=== PATIENT | female | born 1985 | race Caucasian/White ===

== ENCOUNTER 2016-09-22 09:49 | Observation (INO) | payer OTHER ==
[2016-09-22 11:01] LABS: % IMMATURE GRANULYOCYTES 1.8 % (0.0-1.1); ABSOLUTE IMMATURE GRANULOCYTES 0.19 10^3/uL (0.00-0.10); ADD DIFF? NO; ADD MORPH? NO; ADD SCAN? NO; ATYPICAL LYMPHOCYTE FLAG 10 (0-99); FRAGMENT RBC FLAG 0 (0-99); HEMATOCRIT 34.7 % (38.0-47.0); LEFT SHIFT FLG 10 (0-99); LIPEMIA HEMOLYSIS FLAG 90 (0-99); MEAN CELL HEMOGLOBIN 30.5 pg (27.9-34.1); MEAN CELL HEMOGLOBIN CONCENTR. 34.6 g/dL (32.4-36.7); MEAN CELL VOLUME 88.1 fL (81.5-99.8); MEAN PLATELET VOLUME 10.8 fL (8.7-11.7); PLATELET CLUMPS FLAG 0 (0-99); PLATELET COUNT 181 10^3/uL (150-400); RED BLOOD CELL COUNT 3.94 10^6/uL (4.18-5.33)
--- NOTE | 2016-09-22 14:58 | OBPROG ---
OBG Labor Progress Note Assessment/Plan: Assessment: IUP at 30wks with fall forward onto right arm, trying to avoid a snake no direct impact to abd KB neg, CBC with mild anemia Cat I tracing FFN done Plan: D/C home - call if cramps, bld or LOF or decreased FM. Cont hydrating well. RTC as set in 2 wks 09/22/16 14:55 Subjective: Doing fine. Denies cramping or bld. GFM. Anxious after fall. sore right forearm. Objective: 09/22/16 10:40 Bynum Current Contraction Pattern: Other (Specify) (freq mild irritability, no palpable ctxns) FHR (bpm): 130 FHR Pattern Variability: Moderate FHR Category: 1 Membranes: Intact - Procedures Non-surgical Procedures: Other (Specify) (spec exam with small amount d/c - cx closed. FFN done) - Physical Exam General Appearance: WD/WN Abdomen: soft, other (Fundus soft) Extremities: non-tender, pedal edema (none) Neuro/Psych: normal mood/affect Oxytocin Orders Assessment - Pre-Induction/Augmentation Assessment Gestational Age: 30 week(s) and 5 day(s) ICD10 Worksheet Patient Problems: Problems Problem Status Onset Third trimester Acute Fall (on)(from) sidewalk curb, initial encounter Acute
== END 2016-09-22 14:30 | disposition home or self-care (01) ==
LOC: FLD 09:49
PROVIDERS: ADMIT Obstetrics & Gynecology; ATTEND Obstetrics & Gynecology
DX: Z04.3 Encounter for examination and observation following other accident (principal); Z3A.30 30 weeks gestation of pregnancy
CPT/HCPCS: 59025; G0378

== ENCOUNTER 2016-12-01 03:11 | Inpatient (IN) | payer OTHER ==
[2016-12-01] MEDS ORDERED: OLIVE OIL 118 ML BTL MISC PRN (03:38)
[2016-12-01] MEDS ORDERED: TERBUTALINE SULFATE 1 MG/ML VIAL IV PRN (03:38)
[2016-12-01] MEDS ORDERED: OXYTOCIN/RINGERS LACTATE 1,000 ML IV PRN (03:38)
[2016-12-01] MEDS ORDERED: EPSOM SALT 454 GM TP PRN (03:38)
[2016-12-01] MEDS ORDERED: LR 1,000 ML IV PRN (03:38)
[2016-12-01 04:28] LABS: % IMMATURE GRANULYOCYTES 1.2 % (0.0-1.1); ABSOLUTE IMMATURE GRANULOCYTES 0.16 10^3/uL (0.00-0.10); ADD DIFF? NO; ADD MORPH? NO; ADD SCAN? NO; ATYPICAL LYMPHOCYTE FLAG 0 (0-99); FRAGMENT RBC FLAG 0 (0-99); HEMATOCRIT 38.5 % (38.0-47.0); HEMOGLOBIN 13.4 g/dL (12.6-16.3); LEFT SHIFT FLG 10 (0-99); LIPEMIA HEMOLYSIS FLAG 90 (0-99); MEAN CELL HEMOGLOBIN 30.3 pg (27.9-34.1); MEAN CELL HEMOGLOBIN CONCENTR. 34.8 g/dL (32.4-36.7); MEAN CELL VOLUME 87.1 fL (81.5-99.8); MEAN PLATELET VOLUME 11.6 fL (8.7-11.7); PLATELET CLUMPS FLAG 70 (0-99); PLATELET COUNT 177 10^3/uL (150-400); RED BLOOD CELL COUNT 4.42 10^6/uL (4.18-5.33); RED CELL DISTRIBUTION WIDTH 12.8 % (11.5-15.2)
--- NOTE | 2016-12-01 04:52 | GHP ---
[f rep st] PREOP HISTORY AND PHYSICAL DATE OF ADMISSION: 12/01/2016 HISTORY OF PRESENT ILLNESS: The patient is a 31-year-old, G1, P0, at 40+ weeks gestation, with an e stimated due date of 11/26/2016, established by sure last menstrual, consistent with an 8 week ultra sound. The patient had spontaneous rupture of membranes approximately 23:30 on November 30 and began spontaneous onset of contractions approximately an hour later. Contractions have been increasing an d are now 3-4 minutes apart with moderate intensity. The patient has continued to have pink tinged clear fluid. She has noticed good movement. The contraction pains are low and midline. Init ial cervical exam showed the cervix was 1 cm dilated, approximately 70% effaced, at -1 station. Yael eduardo presentation. The patient is wanting to attempt something for pain and will try the tub baths f or now. She is interested in an epidural when available. CARE: The patient has been with [facility] since 8 weeks gestation. The annie t's has been relatively uncomplicated. The patient has a history of heterozygous factor V deficiency and she has been on low-dose aspirin through the . The patient's baseline gerber tocrit was borderline anemic and the patient has been on iron since the beginning. The patient's 20 -week ultrasound was normal at the 58th percentile of growth. LABS: The patient's labs include maternal blood type O positive, with negative an tibody screen. RPR nonreactive. Rubella immune. Hepatitis B surface antigen negative, HIV negativ e. SMA, cystic fibrosis, fragile X, all negative. Thyroid testing was all normal. Gonorrhea and c hlamydia were negative. Pap smear normal. Urinalysis and culture showed greater than 100,000 count asymptomatic bacteria at the beginning and the patient received antibiotics in the 1st trimester. Verifi testing was negative and MSAFP was negative. One-hour Glucola was borderline elevated at 133 and the patient had a 3-hour GTT that was normal. The initial hematocrit was 35% and this dropped to 34%. There was mild improvement of 36% on iron. GBS culture was negative. The patient had a Td ap vaccination on October 06. 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 The sister is homozygous. The patient was diagnose d in 2014. She was advised to be on baby aspirin for the . The patient has no other medic al problems other than a sister with thyroid precancer. PAST SURGICAL HISTORY: Odontectomy. ALLERGIES: The patient has no known drug allergies. CURRENT MEDICATIONS: Only vitamins and low-dose aspirin with iron. SOCIAL HISTORY: The patient is , lives with her , Alejandro. The patient is a nonsmoker. No alcohol or drug use. PHYSICAL EXAM: GENERAL: Upon admission, the patient is a well-developed, well-nourished, white fem kyle, in moderate distress with contractions. VITAL SIGNS: The patient is afebrile and normal vital signs. See nursing documentation for full details. HEART: heart tone monitoring reveals cat egory 2 tracing with baseline in the 130s with moderate variability and accelerations. There are oc casional variable deceleration noted with possible early decelerations occasionally. PELVIC: Contr actions are noted every 3-4 minutes spontaneously. Initial cervical exam was noted above. There wa s no obvious leakage of fluid but no palpable bag. EXTREMITIES: Nontender with no edema. ASSESSMENT: Intrauterine at 40+ weeks gestation with spontaneous rupture of membranes and onset of contractions. GBS culture negative. Early latent labor. Factor V heterozygous deficienc y on low-dose aspirin. PLAN: We will have the patient do tub for now and then recheck her cervix and get an epidural when the patient has shown some cervical change. /[id number]/MODL
[2016-12-01] MEDS ORDERED: LIDOCAINE 1% 300 MG/30 ML SDV ONE (05:24)
[2016-12-01] MEDS ORDERED: TERBUTALINE SULFATE 1 MG/ML VIAL ONE (05:25)
[2016-12-01] MEDS ORDERED: OXYTOCIN 10 UNIT/ML VIAL ONE (05:25)
[2016-12-01] MEDS ORDERED: AMMONIA AROMATIC 1 EACH AMP IH ONE (05:25)
[2016-12-01] MEDS ORDERED: OLIVE OIL 118 ML BTL ONE (05:25)
[2016-12-01] MEDS ORDERED: MISOPROSTOL 200 MCG TAB ONE (05:26)
[2016-12-01] MEDS ORDERED: PHENYLEPHRINE HCL 100 MCG/ML SYR ONE (07:07)
[2016-12-01] MEDS ORDERED: fentaNYL 2MCG/ML/BUP 0.1% RTU 100 ML BAG EP ONE (07:07)
[2016-12-01] MEDS ORDERED: BUPIVACAINE 0.25% 30 ML SDV ONE (07:07)
--- NOTE | 2016-12-01 07:54 | PREANESOB ---
Obstetric Pre-Anesthesia Info - General Info Proposed Procedure: Labor epidural for laboring patient : 1 Para: 0 WBD: 40 - Info Status: Full Term Monitors: External FHR Baseline (bpm): 135 FHR Pattern: Reassuring - Labor Status Cervical Dilation per last OB SVE: 2 Magnesium Sulfate in Use: No Indications for Labor Analgesia: Pain Control Labor Epidural: Proposed Anesthesia Allergies/Adverse Reactions: Allergy/AdvReac Type Severity Reaction Status Date / Time grass pollen Allergy Verified 09/22/16 10:13 Home Medications: Medication Instructions Recorded EPINEPHrine [Epipen] 0.3 mg IM ONCE #2 syr 11/19/14 predniSONE 40 mg PO DAILY #10 tab 11/19/14 Visit Medications: Generic Name Dose Route Start Last Admin Trade Name Freq PRN Reason Stop Dose Admin Lactated Ringer's 1,000 mls @ 0 mls/hr 12/01/16 03:38 Lr IV 05/30/17 03:37 PRN PRN SEE PROTOCOL CONDITIONS Protocol Per Protocol Oxytocin/Lactated Ringer's 1,000 mls @ 150 mls/hr 12/01/16 03:38 Pitocin 20 Units/Lr (Premix) IV PRN PRN Post- bleeding Ibuprofen 600 mg 12/01/16 03:38 Motrin PO 05/30/17 03:37 Q6HRS PRN post , inflammation Magnesium Sulfate 454 gm 12/01/16 03:38 Epsom Salt TP 05/30/17 03:37 Q1H PRN perineal discomfort Fowler Oil 118 ml 12/01/16 03:38 Sweet Oil MISC 05/30/17 03:37 ONCE PRN preneal massage Terbutaline Sulfate 0.25 mg 12/01/16 03:38 Brethine IV 05/30/17 03:37 ONCE PRN Tachysystole Discontinued Medications Generic Name Dose Route Start Last Admin Trade Name Freq PRN Reason Stop Dose Admin Ammonia (Aromatic Spirit) Confirm 12/01/16 05:25 Ammonia Aromatic Administered 12/01/16 05:26 Dose 1 each IH .STK-MED ONE Bupivacaine HCl Confirm 12/01/16 07:07 Sensorcaine 0.25% Sdv Administered 12/01/16 07:08 Dose 30 ml .ROUTE .STK-MED ONE Fentanyl/Bupivacaine HCl Confirm 12/01/16 07:07 Fentanyl/Bupivacaine/Ns 2 Mcg/Ml 0.1% (Premix Administered 12/01/16 07:08 Dose 100 ml EP .STK-MED ONE Lidocaine HCl Confirm 12/01/16 05:24 Lidocaine Hcl 1% Administered 12/01/16 05:25 Dose 300 mg .ROUTE .STK-MED ONE Misoprostol Confirm 12/01/16 05:26 Cytotec Administered 12/01/16 05:27 Dose 1,000 mcg .ROUTE .STK-MED ONE Fowler Oil Confirm 12/01/16 05:25 Sweet Oil Administered 12/01/16 05:26 Dose 118 ml .ROUTE .STK-MED ONE Oxytocin Confirm 12/01/16 05:25 Pitocin Administered 12/01/16 05:26 Dose 40 unit .ROUTE .STK-MED ONE Phenylephrine HCl Confirm 12/01/16 07:07 Neosynephrine Administered 12/01/16 07:08 Dose 1,000 mcg .ROUTE .STK-MED ONE Terbutaline Sulfate Confirm 12/01/16 05:25 Brethine Administered 12/01/16 05:26 Dose 1 mg .ROUTE .STK-MED ONE - Anesthesia History Response to Local Anesthetics: Normal Anesthesia & Operative History: No Prior Problems Family Anesthesia History: Not Applicable - Social History Substance Use/Abuse: Denies - Focused Exam Blood Pressure: 133/78 Heart Rate: 74 Respiratory Rate: 18 Height/Weight (Nursing): Height 162.56 cm Weight 78.471 kg Weight: 78 kg Height: 162.5 cm Physical Exam: WNL ASA Status: II Labs: 12/01/16 04:10 Patient ABO/Rh O POSITIVE 12/01/16 04:10 - Plan Consent Signed and on Chart: Yes Patient/Guardian Understands and Agrees to Plan: Yes Urgent/Emergent Case: Shelbyector schultzmicheal completed preop but documented later for safe timely pt care
[2016-12-01] MEDS ORDERED: ONDANSETRON 4 MG/2 ML VIAL IVP PRN (07:56)
[2016-12-01] MEDS ORDERED: PHENYLEPHRINE HCL 100 MCG/ML SYR IVP PRN (07:56)
--- NOTE | 2016-12-01 07:56 | POSTANESTH ---
Post Anesthetic Evaluation Cardiovascular Status: Normal, Stable Respiratory Status: Normal, Stable Level of Consciousness/Mental Status: Can Participate in Eval Pain Control: Adequate, Prn Tx Ordered Nausea/Vomiting Control: Adequate, Prn Tx Ordered Complications Possibly Related to Anesthesia: None Noted
[2016-12-01] MEDS ORDERED: LR 500 ML IV SCH (08:00)
[2016-12-01] MEDS ORDERED: fentaNYL 2MCG/ML/BUP 0.1% RTU 100 ML EP SCH (08:00)
--- NOTE | 2016-12-01 08:41 | OBPROG ---
OBG Labor Progress Note Assessment/Plan: Assessment: 31 y/o @ 40 5/7 wks with SROM in labor Plan: Continue expectant management s/p epidural FHTs - Cat I tracing with intermittent early decels Progressing well Anticipate 12/01/16 08:38 Subjective: Pt is comfortable, s/p epidural Objective: 12/01/16 04:10 Patient ABO/Rh O POSITIVE 12/01/16 04:10 Temp Pulse Resp BP Pulse Ox 74 18 133/78 H 12/01/16 07:55 12/01/16 07:55 12/01/16 07:55 - SVE Dilation (cm): 4 Effacement (%): 75 Station: -1 Bynum FHR (bpm): 130 FHR Pattern Variability: Moderate FHR Category: 1 (After the epidural, there was noted to be intermittent late decels x 2, recovered after resuscitation) Membranes: SROM Amniotic Fluid Color: Clear Oxytocin Orders Assessment - Pre-Induction/Augmentation Assessment Gestational Age: 40 week(s) and 5 day(s) ICD10 Worksheet Patient Problems: Problems Problem Status Onset SROM (spontaneous rupture of membranes) Acute Fall (on)(from) sidewalk curb, initial encounter Acute Third trimester Acute - ICD10 Problem Qualifiers (1) SROM (spontaneous rupture of membranes)
[2016-12-01] MEDS ORDERED: LR 500 ML IV PRN (08:44)
[2016-12-01] MEDS ORDERED: OXYTOCIN/RINGERS LACTATE 500 ML IV SCH (09:00)
--- NOTE | 2016-12-01 13:20 | OBPROG ---
OBG Labor Progress Note Assessment/Plan: Assessment: 31 y/o @ 40 5/7 wks with SROM in labor Plan: Pitocin at 4 mu/min, cont per protocol FHTs - Cat I tracing Anticipate 12/01/16 13:15 Subjective: Feeling comfortable with epidural, some pressure down below. Objective: 12/01/16 04:10 Patient ABO/Rh O POSITIVE 12/01/16 04:10 Temp Pulse Resp BP Pulse Ox 74 18 133/78 H 12/01/16 07:55 12/01/16 07:55 12/01/16 07:55 - SVE Dilation (cm): 7 (7-8) Effacement (%): 90 Station: +1 Bynum Current Contraction Pattern: Regular (q 3-4 min) FHR (bpm): 120 FHR Pattern Variability: Moderate FHR Category: 1 Membranes: SROM Amniotic Fluid Color: Clear Oxytocin Orders Assessment - Pre-Induction/Augmentation Assessment Gestational Age: 40 week(s) and 5 day(s) ICD10 Worksheet Patient Problems: Problems Problem Status Onset SROM (spontaneous rupture of membranes) Acute - ICD10 Problem Qualifiers (1) SROM (spontaneous rupture of membranes)
[2016-12-01] MEDS ORDERED: ACETAMINOPHEN 160 MG/5 ML UDCUP PO ONE (16:24)
[2016-12-01] MEDS ORDERED: ACETAMINOPHEN 325 MG TAB PO ONE (16:45)
--- NOTE | 2016-12-01 17:18 | OBPROG ---
OBG Labor Progress Note Assessment/Plan: Assessment: 31 y/o @ 40 5/7 wks with SROM in labor Plan: Pitocin at 3 mu/min, cont per protocol FHTs - Cat I tracing, was tachycardic Maternal fever Tmax 38.4, will tx for chorio with Amp and Gent Tylenol as needed Will have pt labor down 12/01/16 17:19 Subjective: She is comfortable with epidural Objective: 12/01/16 04:10 Patient ABO/Rh O POSITIVE 12/01/16 04:10 Temp Pulse Resp BP Pulse Ox 74 18 133/78 H 12/01/16 07:55 12/01/16 07:55 12/01/16 07:55 - SVE Dilation (cm): 9 (Ant lip) Effacement (%): 100 Station: +1 Bynum Current Contraction Pattern: Regular FHR (bpm): 130 FHR Pattern Variability: Moderate FHR Category: 1 Membranes: SROM Amniotic Fluid Color: Clear Oxytocin Orders Assessment - Pre-Induction/Augmentation Assessment Gestational Age: 40 week(s) and 5 day(s) ICD10 Worksheet Patient Problems: Problems Problem Status Onset Chorioamnionitis, delivered, current hospitalization Acute SROM (spontaneous rupture of membranes) Acute - ICD10 Problem Qualifiers (1) SROM (spontaneous rupture of membranes) (2) Chorioamnionitis, delivered, current hospitalization
[2016-12-01] MEDS: GENTAMICIN 80 MG/NACL 100 ML IV SCH (17:31)
[2016-12-01] MEDS: AMPICILLIN SODIUM 2 GM in NS 100 ML IV SCH (19:03)
[2016-12-01 23:46] LABS: PH VENOUS CORD BLOOD 7.19 (7.20-7.42)
[2016-12-01] MEDS ORDERED: SIMETHICONE 80 MG TAB CHEW PO PRN (23:53)
[2016-12-01] MEDS ORDERED: HYDROCORTISONE 0.5% CREAM TP PRN (23:53)
[2016-12-01] MEDS ORDERED: IBUPROFEN 600 MG TAB PO PRN (23:54)
--- NOTE | 2016-12-01 23:58 | OBDEL ---
Info Type: Vaginal GBS+: No Indications for Delivery: SROM Vaginal Delivery - Labor and Delivery Onset of Contractions Date: 12/01/16 Onset of Contractions Time: 00:30 Onset of Contractions Type: Spontaneous Rupture of Membranes Date: 11/30/16 Rupture of Membranes Time: 23:30 Rupture of Membranes Type: Spontaneous Amniotic Fluid Color: Clear (2330 11/30) Dilation Complete Date: 12/01/16 Dilation Complete Time: 21:07 Placenta Delivery Date: 12/01/16 Placenta Delivery Time: 23:30 Total Hours of Labor: 23 Laceration: 2nd Degree, Other (Specify) (R sulcal and L labial) Repair: 3-0, Vicryl Vaginal Sponge Count Correct: Yes Vaginal Needle Count Correct: Yes Vaginal Sweep Performed: Yes EBL: 250 cc Delivery Events: None Cord Gases: Cord Gases Cord Blood PCO2 REJ 12/01/16 23:24 Cord Base Excess REJ 12/01/16 23:24 Cord ABG pH 7.20 (7.10-7.37) 12/01/16 23:24 Cord VBG pH 7.19 (7.20-7.42) L 12/01/16 23:24 - Medications Labor Augmentation/Induction Methods Used: Pitocin Labor Augmentation/Induction Indication: Other (Specify) (Ctx's spaced out) Operative Report - Delivery Cord Gases: Cord Gases Cord Blood PCO2 REJ 12/01/16 23:24 Cord Base Excess REJ 12/01/16 23:24 Cord ABG pH 7.20 (7.10-7.37) 12/01/16 23:24 Cord VBG pH 7.19 (7.20-7.42) L 12/01/16 23:24 Data Bynum Delivery Date: 12/01/16 Delivery Time: 23:24 WERO: 11/26/16 Gestational Age: 40 week(s) and 5 day(s) Sex of Infant: Male Score (1 Min): 7 Score (5 Min): 9 ICD10 Worksheet Patient Problems: Problems Problem Status Onset Chorioamnionitis, delivered, current hospitalization Acute SROM (spontaneous rupture of membranes) Acute - ICD10 Problem Qualifiers (1) SROM (spontaneous rupture of membranes) (2) Chorioamnionitis, delivered, current hospitalization
[2016-12-02] MEDS: IBUPROFEN 600 MG TAB PO PRN ×4 (00:34→20:04)
[2016-12-02] MEDS: AMPICILLIN SODIUM 2 GM in NS 100 ML IV SCH ×2 (01:15→10:43)
[2016-12-02] MEDS: GENTAMICIN 80 MG/NACL 100 ML IV SCH ×2 (01:15→10:43)
[2016-12-02] MEDS: HYDROCODONE/APAP 5/325 TAB PO PRN ×2 (01:19→21:46)
[2016-12-02] MEDS: DOCUSATE SODIUM 100 MG CAP PO PRN (08:03)
--- NOTE | 2016-12-02 16:21 | OBPP ---
Progress Note Assessment/Plan: Assessment: PPD 1/2 s/p hetero Factor V - cont LDA Plan: routine care 12/02/16 16:19 Subjective: Pt doing well. working on BF. bld has lessened. urinating fine. sore bottom - doing ok with ibu. Objective: 12/01/16 04:10 Patient ABO/Rh O POSITIVE 12/01/16 04:10 Temp Pulse Resp BP Pulse Ox 36.4 C 76 16 114/72 98 12/02/16 08:35 12/02/16 08:35 12/02/16 08:35 12/02/16 08:35 12/02/16 08:35 Physical Exam - Physical Exam General Appearance: WD/WN, alert Abdomen: non-tender, soft, other (FF at umb -1, normal lochia) Extremities: non-tender, pedal edema (minimal) Skin: normal color, warm/dry Neuro/Psych: alert, normal mood/affect
[2016-12-03] MEDS: IBUPROFEN 600 MG TAB PO PRN ×3 (02:10→16:32)
--- NOTE | 2016-12-03 08:07 | OBPP ---
Progress Note Assessment/Plan: Assessment: s/p PPD # 1.5 - pt is stable Plan: Continue routine pp care Epson salt bath today Plan for d/c home in am 12/0412/03/16 08:07 Subjective: Pt seen and examined. Doing well, just got out of shower. Mild cramping- resolved now. Mod lochia. Billy regular diet, voiding without difficulty, passing flatus. No BM. BF with some difficulty with latch. Objective: 12/01/16 04:10 Patient ABO/Rh O POSITIVE 12/01/16 04:10 Temp Pulse Resp BP Pulse Ox 36.5 C 71 18 114/60 97 12/02/16 19:30 12/02/16 19:30 12/02/16 19:30 12/02/16 19:30 12/02/16 19:30 Uterine Position/Fundal Height: Umbilicus -2 Uterine Tone: Firm Physical Exam - Physical Exam General Appearance: WD/WN, alert, no apparent distress Respiratory: lungs clear, normal breath sounds Cardiac/Chest: regular rate, rhythm Abdomen: normal bowel sounds, non-tender, soft, flatus Extremities: non-tender, normal inspection Skin: warm/dry, cyanosis Neuro/Psych: alert, normal mood/affect, oriented x 3
[2016-12-03] MEDS: DOCUSATE SODIUM 100 MG CAP PO PRN (08:58)
[2016-12-04] MEDS: HYDROCODONE/APAP 5/325 TAB PO PRN (00:46)
[2016-12-04] MEDS: IBUPROFEN 600 MG TAB PO PRN ×2 (00:47→08:44)
[2016-12-04] MEDS: DOCUSATE SODIUM 100 MG CAP PO PRN ×2 (00:47→08:44)
--- NOTE | 2016-12-04 10:07 | OBPP ---
Progress Note Assessment/Plan: Assessment: 31 yo ppd #2 1/2 s/p breast feeding Plan: routine post care and discharge instructions 12/04/16 10:04 Subjective: patient is doing well. is a little sleep deprived. pain is well controlled. normal lochia. denies headache and changes in vision. breast feeding is going well. mood is good. Objective: 12/01/16 04:10 Patient ABO/Rh O POSITIVE 12/01/16 04:10 Temp Pulse Resp BP Pulse Ox 36.6 C 76 18 110/68 96 12/03/16 20:30 12/03/16 20:30 12/03/16 20:30 12/03/16 20:30 12/03/16 20:30 Uterine Position/Fundal Height: Umbilicus -2 Uterine Tone: Firm Physical Exam - Physical Exam General Appearance: WD/WN, alert, no apparent distress Neck: non-tender, full range of motion Respiratory: chest non-tender, lungs clear, normal breath sounds Cardiac/Chest: normal peripheral pulses, regular rate, rhythm Abdomen: normal bowel sounds, hypoactive bowel sounds Extremities: normal range of motion, non-tender, normal inspection, normal capillary refill Skin: normal color, warm/dry Neuro/Psych: no motor/sensory deficits, alert, normal mood/affect
--- NOTE | 2016-12-04 10:28 | OBGCSDC ---
General Delivery Information - General Info : 1 Para: 1 Delivery Physician/CNM: Keisha Colon Admission Date: 12/01/16 Labs: Patient ABO/Rh O POSITIVE 12/01/16 04:10 Hct 38.5 % (38.0-47.0) 12/01/16 04:10 Vaginal - Diagnosis Labor: Spontaneous Rupture of Membranes Type: Spontaneous Amniotic Fluid Color: Clear (2330 11/30) Laceration: 2nd Degree, Other (Specify) (R sulcal and L labial) Repair: 3-0, Vicryl Delivery Events: None - Operations/Procedures L&D Analgesia/Anesthesia Type: Epidural, Local - Hospital Course Antepartum: care with [facility] at 10 weeks. factor v heterozygous. negative verify. Intrapartum: srom at 2330. arrived . labored in tub. epidural. pitocin. pushed x 2 hours : breast feeding is going well. denies headache and changes in vision. normal lochia. no issues. - Delivery L&D Analgesia/Anesthesia Type: Epidural, Local [place] Data Bynum Delivery Date: 12/01/16 Delivery Time: 23:24 WERO: 11/26/16 Gestational Age: 41 week(s) and 1 day(s) Sex of Infant: Male Weight (gm): 4000 g Score (1 Min): 7 Score (5 Min): 9 Discharge Information - Discharge Information Discharge Medications: Ibuprofen, Vitamins Condition: Good Instruction/Follow Up: Four Weeks, Six Weeks Discharge Physician/CNM: Cherry Garsia
[2016-12-04 10:29] VITALS: BP 119/74; PULSE 83; RESP 16; TEMP 98.2; O2SAT 97
== END 2016-12-04 11:30 | disposition home or self-care (01) | DRG 775 ==
LOC: FLD 03:11 → FOB 12-02 02:30
PROVIDERS: ADMIT Obstetrics & Gynecology; ATTEND Obstetrics & Gynecology
PROC: 0KQM0ZZ Repair Perineum Muscle, Open Approach (ICD-10-PCS; principal; 2016-12-01)
PROC: 10E0XZZ Delivery of Products of Conception, External Approach (ICD-10-PCS; principal; 2016-12-01)
PROC: 3E033VJ Introduction of Other Hormone into Peripheral Vein, Percutaneous Approach (ICD-10-PCS; principal; 2016-12-01)
DX: O42.02 Full-term premature rupture of membranes, onset of labor within 24 hours of rupture (principal); O70.1 Second degree perineal laceration during delivery; O41.1230 Chorioamnionitis, third trimester, not applicable or unspecified; O99.113 Other diseases of the blood and blood-forming organs and certain disorders involving the immune mechanism complicating pregnancy, third trimester; D68.51 Activated protein C resistance; Z37.0 Single live birth; Z3A.40 40 weeks gestation of pregnancy
CPT/HCPCS: J0290; J1580; J2370; J2590; J3105

== ENCOUNTER → 2017-10-17 | Outpatient (CLI) | payer OTHER | LOC: BMCIMAGING 09:34 | PROVIDERS: ATTEND Family Medicine | DX: R93.5 Abnormal findings on diagnostic imaging of other abdominal regions, including retroperitoneum (principal); R10.31 Right lower quadrant pain ==

== ENCOUNTER → 2017-10-23 | Outpatient (CLI) | payer OTHER ==
[~2017-10-23] MED LIST: IOPAMIDOL (ISOVUE-300) 100 ML BTL ONE
== END ==
LOC: FIMAGING 11:51
PROVIDERS: ATTEND Radiology Diagnostic Radiology
DX: K68.9 Other disorders of retroperitoneum (principal); R16.2 Hepatomegaly with splenomegaly, not elsewhere classified
CPT/HCPCS: Q9967

== ENCOUNTER → 2017-12-06 | Outpatient (CLI) | payer OTHER | LOC: FIMAGING 15:13 | PROVIDERS: ATTEND Surgery | DX: K35.2 Acute appendicitis with generalized peritonitis (principal) | CPT/HCPCS: Q9967 ==

== ENCOUNTER 2018-04-23 10:59 | Day surgery (SDC) | payer OTHER ==
[~2018-04-23 10:59] MED LIST changes: -IOPAMIDOL (ISOVUE-300) 100 ML BTL ONE; +cefOXitin SODIUM 2 GM in NS 100 ML IV ONE
[2018-04-23] MEDS ORDERED: LR 1,000 ML IV ONE (11:14)
--- NOTE | 2018-04-23 11:59 | PDHPUP ---
History & Physical Update H&P update statement: This history and physical update is based on an assessment of the patient which was completed after admission or registration (within 24 hours), but prior to the surgery/procedure. H&P update: H&P reviewed & patient examined, no change in patient's condition since H&P completed
[2018-04-23] MEDS ORDERED: ceFAZolin 1 GM/5 ML SYR ONE (13:38)
[2018-04-23] MEDS ORDERED: BUPIVACAINE 0.5% 30 ML SDV ONE (13:38)
[2018-04-23] MEDS ORDERED: HEPARIN 1000 UNIT/1 ML MDV ONE (13:38)
[2018-04-23] MEDS ORDERED: fentaNYL 100 MCG/2 ML INJ ONE ×3 (13:51→15:50)
[2018-04-23] MEDS ORDERED: PROPOFOL 200 MG/20 ML VIAL ONE ×2 (13:51→14:20)
[2018-04-23] MEDS ORDERED: SUCCINYLCHOLINE CHLORIDE 200 MG/10 ML SYR IVP ONE (13:51)
[2018-04-23] MEDS ORDERED: LIDOCAINE 2% 100 MG/5 ML SYR ONE (13:51)
[2018-04-23] MEDS ORDERED: ROCURONIUM 50 MG/5 ML VIAL ONE (13:51)
[2018-04-23] MEDS ORDERED: ONDANSETRON 4 MG/2 ML VIAL ONE (13:51)
[2018-04-23] MEDS ORDERED: HYDROmorphONE/DILAUDID 2 MG/ML INJ IVP PRN (14:53)
[2018-04-23] MEDS ORDERED: LR 500 ML IV PRN (14:53)
[2018-04-23] MEDS ORDERED: fentaNYL 100 MCG/2 ML INJ IVP PRN (14:53)
[2018-04-23] MEDS ORDERED: ACETAMINOPHEN 500 MG TAB PO PRN (14:53)
[2018-04-23] MEDS ORDERED: NALOXONE HCL 0.4 MG/ML INJ IVP PRN (14:53)
[2018-04-23] MEDS ORDERED: oxyCODONE IR 5 MG TAB PO PRN (14:53)
--- NOTE | 2018-04-23 14:56 | POSTOPPROG ---
Post Op Note Date of Operation: 04/23/18 Surgeon: Oneal Werner Bending Machine Operator: Saskia Mckinley Anesthesiologist: Soheila Ziegler Anesthesia: GET(General Endotracheal) Pre-op Diagnosis: subacute appendicitis, hx appendiceal abscess, 17 week gravid Post-op Diagnosis: same Procedure: lap appy Findings: small appendix c adhesions, no uterine contractions Inf/Abcess present in the surg proc area at time of surgery?: No EBL: Minimal Complications: none Specimen(s): appendix to pathology
--- NOTE | 2018-04-23 15:25 | POSTANESTH ---
Post Anesthetic Evaluation Cardiovascular Status: Normal, Stable Respiratory Status: Normal, Stable Level of Consciousness/Mental Status: Can Participate in Eval, Alert and Oriented (FHT dopplered in the 130s by OB in PACU a 1321) Pain Control: Adequate, Prn Tx Ordered Nausea/Vomiting Control: Adequate, Prn Tx Ordered Complications Possibly Related to Anesthesia: None Noted
--- NOTE | 2018-04-23 15:27 | PDANEPAE ---
ANE History of Present Illness history of appendicitis with perforation requiring perc drainage and antibiotic therapy. At time of perf pt learned she was 10 weeks . Here today for semi elective appe at 17 weeks. FHT pre op 150s. Risks of anesthesia during discussed ANE Past Medical History - Cardiovascular History Hx Hypertension: No Hx Arrhythmias: No Hx Chest Pain: No Hx Coronary Artery / Peripheral Vascular Disease: No Hx CHF / Valvular Disease: No Hx Palpitations: No - Pulmonary History Hx COPD: No Hx Asthma/Reactive Airway Disease: No Hx Recent Upper Respiratory Infection: No Hx Oxygen in Use at Home: No Hx Sleep Apnea: No Sleep Apnea Screening Result - Last Documented: Negative - Neurologic History Hx Cerebrovascular Accident: No Hx Seizures: No Hx Dementia: No - Endocrine History Hx Diabetes: No - Renal History Hx Renal Disorders: No - Liver History Hx Hepatic Disorders: No - Neurological & Psychiatric Hx Hx Neurological and Psychiatric Disorders: No - Cancer History Hx Cancer: No - Congenital Disorder History Hx Congenital Disorders: No - GI History Hx Gastrointestinal Disorders: No - Other Health History Other Health History: none. pt is - Chronic Pain History Chronic Pain: No - Surgical History Prior Surgeries: none in last 5 yrs ANE Review of Systems Review of Systems: - Exercise capacity METS (RN): 5 METS ANE Patient History - Allergies Allergies/Adverse Reactions: grass pollen Allergy (Verified 04/12/18 12:25) - Home Medications Home Medications: EPINEPHrine [Epipen 0.3 MG] 04/12/18 [Last Taken Unknown] Ibuprofen [Motrin (*)] 04/12/18 [Last Taken Unknown] Multivitamin Tablet 04/23/18 [Last Taken 04/22/18] Tylenol 325mg (*) 04/23/18 [Last Taken Unknown] - NPO status NPO Since - Liquids (Date): 04/23/18 NPO Since - Liquids (Time): 09:00 NPO Since - Solids (Date): 04/22/18 NPO Since - Solids (Time): 20:30 - Smoking Hx Smoking Status: Former smoker - Family Anes Hx Family Hx Anesthesia Complications: none ANE Labs/Vital Signs - Vital Signs Blood Pressure: 114/70 Heart Rate: 68 Respiratory Rate: 21 O2 Sat (%): 98 Height: 162.56 cm Weight: 68.039 kg ANE Physical Exam - Airway Neck exam: FROM Mallampati Score: Class 1 Mouth exam: normal dental/mouth exam - Pulmonary Pulmonary: no respiratory distress, no rales or rhonchi - Cardiovascular Cardiovascular: regular rate and rhythym, no murmur, rub, or gallop - ASA Status ASA Status: III ANE Anesthesia Plan Anesthesia Plan: general endotracheal anesthesia (I logged off prematurely and lost the document prior to going into the operating room. I realized i lost the pre-op when doing the post op note and have submitted this document in its place ) Total IV Anesthesia: No
[2018-04-23] MEDS ORDERED: ACETAMINOPHEN 325 MG TAB ONE (15:50)
[2018-04-23] MEDS ORDERED: ACETAMINOPHEN 500 MG TAB ONE (15:59)
[2018-04-23] MEDS ORDERED: oxyCODONE IR 5 MG TAB ONE (16:53)
[2018-04-23 18:31] VITALS: BP 106/67
--- NOTE | 2018-04-25 05:02 | GOP ---
DATE OF OPERATION: 04/23/2018 SURGEON: Oneal Werner MD [employer] TEACHER: JOHN Barrientos ANESTHESIOLOGIST: Dr. Gopi Ziegler DO PREOPERATIVE DIAGNOSIS: History of appendiceal abscess, umbilical hernia. POSTOPERATIVE DIAGNOSIS: History of appendiceal abscess, umbilical hernia. PROCEDURE PERFORMED: Laparoscopic appendectomy, umbilical hernia repair. FINDINGS: Patient was found to have a 20 week intrauterine , which appeared to be normal. 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 DESCRIPTION OF PROCEDURE: The patient was taken the operating room where she received satisfactory g eneral endotracheal anesthesia by Dr. Ziegler. She was placed with a wedge under her right side to daja p pressure off her vena cava. Left upper quadrant short incision was made. A Veress needle inserted. Pneumoperitoneum was establi shed. Pressure was maintained at only 10. A 5 mm trocar was introduced. Laparoscope was introduced . Good visualization was obtained. Two other trocars were placed in the lower abdomen under direct vision. One of the trocars were placed through the umbilical hernia defect. Much care was made to n ot touch and to stay away from the uterus, which remained quite during the entire procedure. The appendix was identified. It was freed up from some loose adhesions, elevated up. The mesoappend ix was divided with the Harmonic Scalpel until the base was skeletonized. It was then divided with E ndo-JOSE stapler, placed in a specimen bag and extracted through the umbilical port site. Hemostasis was assured. There was no active bleeding. Suture line appeared to be intact. Trocars were removed under direct vision. Trocar sites were closed with 0 Vicryl for the fascia, 4-0 Monocryl subcuticul ar stitch for the skin, and all wounds were infiltrated with 0.5% Marcaine. Attention was turned to the umbilical hernia defect. The sac was freed up and dissected free of the umbilical skin. Edges were defined. The contents were reduced and the hernia was closed with interr upted 0 PDS [id number] sutures in a 2-layer [id number]-[id number]-[id number] type fashion. Subcu was closed with 3-0 Vicryl and skin with a 4-0 Monocryl subcuticular stitch, and the wound was also infiltrated with 0.5% Marcaine. She tolerated the procedure well taken recovery room in good condition. There were no complications. /[id number]/MODL
== END 2018-04-23 18:31 | disposition home or self-care (01) ==
LOC: FSGY 10:59
PROVIDERS: ATTEND Surgery
PROC: 0WQF4ZZ Repair Abdominal Wall, Percutaneous Endoscopic Approach (ICD-10-PCS; principal; 2018-04-23 12:45)
PROC: 0DTJ4ZZ Resection of Appendix, Percutaneous Endoscopic Approach (ICD-10-PCS; principal; 2018-04-23 12:45)
DX: K35.33 Acute appendicitis with perforation, localized peritonitis, and gangrene, with abscess (principal); K42.9 Umbilical hernia without obstruction or gangrene; O99.612 Diseases of the digestive system complicating pregnancy, second trimester; Z3A.17 17 weeks gestation of pregnancy
CPT/HCPCS: J0330; J0694; J2001; J2405; J2704; J3010

== ENCOUNTER 2018-09-25 22:35 | Inpatient (IN) | payer OTHER | END 2018-09-27 13:05 | disposition home or self-care (01) | LOC: FLD 22:35 → FOB 09-26 07:26 ==